=== PATIENT | female | born 1965 | race Caucasian/White ===

== ENCOUNTER → 2021-09-16 08:25 | Outpatient (CLI) | payer OTHER, SELFPAY | PROVIDERS: Visit Provider Nurse Practitioner Critical Care Medicine | DX: R30.0 Dysuria (principal) | CPT/HCPCS: 87086 ==

== ENCOUNTER 2021-09-16 08:54 | Emergency (ER) | payer OTHER, SELFPAY ==
[2021-09-16 09:10] VITALS: BP 123/73; PULSE 80; RESP 18; TEMP 36.3; O2SAT 95; BMI 28.3
[2021-09-16 09:41] LABS: Add Manual Diff / Slide Review NO; Basophils Absolute Auto 0 /uL (0-100); Basophils Percent Auto 0.7 % (0-2); Eosinophils Absolute Auto 0 /uL (0-450); Eosinophils Percent Auto 0.6 % (2-4); Hemoglobin 13.7 g/dL (12.0-16.0); INR 1.1 (0.9-1.3); Lymphocytes Absolute Auto 1300 /uL (1100-4500); Lymphocytes Percent Auto 19.2 % (25-40); Mean Corpuscular HGB Conc 34.2 % (30-36); Mean Corpuscular Hemoglobin 30.1 PG (26-34); Mean Corpuscular Volume 88.2 fL (80-100); Monocytes Absolute Auto 300 /uL (0-900); Monocytes Percent Auto 4.7 % (3-14); Neutrophils Absolute Auto 5200 /uL (1500-7000); Neutrophils Percent Auto 74.8 % (50-75); Platelet Count 218 X10^3/uL (150-400); Prothrombin Time 12.1 SECONDS (10.1-12.7); Red Blood Cell Count 4.54 X10^6/uL (4.0-5.2); Red Cell Distribution Width 13.1 % (11.6-14.8); White Blood Cell Count 6.9 X10^3/uL (4.5-11.0)
[2021-09-16 09:44] LABS: PTT Partial Thromboplastin Tim 29 SECONDS (26.4-36.2)
[2021-09-16 09:47] LABS: Alanine Aminotransferase 20 IU/L (<35); Albumin 4.3 g/dL (3.5-5.0); Albumin Globulin Ratio 1.3 (1.0-2.8); Alkaline Phosphatase 72 U/L (38-126); Aspartate Aminotransferase 25 IU/L (14-36); Bilirubin Total 0.9 mg/dL (0.2-1.3); Blood Urea Nitrogen 14 mg/dL (7-17); Calcium 9.2 mg/dL (8.4-10.2); Carbon Dioxide 24 mmol/L (22-32); Chloride 109 mmol/L (98-107); Estimated Glomerular Filt Rate > 60.0 mL/min (>60); Globulin 3.2 g/dL (1.7-4.1); Glucose 124 mg/dL (70-100); HEMOLYSIS < 15 (0-50); Lipase 91 U/L (23-300); Potassium 3.9 mmol/L (3.4-5.1); Sodium 137 mmol/L (137-145); Total Protein 7.5 g/dL (6.3-8.2)
--- NOTE | 2021-09-16 09:55 | ED.ABDPAIN ---
HPI - Abdominal Pain General Chief Complaint: Abdominal Pain Stated Complaint: Stomach pain Time Seen by Provider: 09/16/21 09:54 Source: patient Mode of arrival: Ambulatory Limitations: no limitations History of Present Illness HPI narrative: The patient presents with left upper quadrant abdominal pain, diarrhea for 3 days, and rectal pressure. She has no nausea vomiting. She had a positive Cologuard 3 days ago. She had a colonoscopy many years ago, no recent GI studies. With the rectal pressure, there is a rectal bulge, perhaps a hemorrhoid. With the abdominal cramping, she has no proven history of diverticulitis. No chronic GI issues. She has no URI symptoms, cough, or respiratory symptoms. She has no fever chills. She has no back pain, no dysuria or hematuria Related Data Home Medications Medication Instructions Recorded Confirmed escitalopram oxalate 5 mg tablet 5 mg PO DAILY 09/16/21 09/16/21 Previous Rx's Medication Instructions Recorded amoxicillin 875 mg-potassium 1 tab PO BID #14 tab 09/16/21 clavulanate 125 mg tablet Allergies Allergy/AdvReac Type Severity Reaction Status Date / Time erythromycin base Allergy Intermediate Rash Verified 09/16/21 09:33 morphine Allergy Mild Rash Verified 09/16/21 09:33 Review of Systems Constitutional Constitutional: Denies anorexia, Denies chills, Denies fever(s) and Denies headache(s) Eyes Eyes: Denies change in vision ENT Ears, Nose, Mouth, and Throat: Denies dizziness, Denies headache(s), Denies sinus pressure and Denies sore throat Cardiovascular Cardiovascular: Denies chest pain, Denies syncope and Denies rapid heart rate Respiratory Respiratory: Denies chest congestion and Denies cough Gastrointestinal Gastrointestinal: Reports as per HPI Genitourinary Genitourinary: Denies dysuria, Denies dysuria and Reports flank pain Musculoskeletal Musculoskeletal: Denies back pain Integumentary/Breasts Skin/Breast: Denies lesions and Denies rash Neurologic Neurologic: Denies confusion, Denies dizziness, Denies syncope and Denies headache(s) Psychiatric Psychiatric: Denies confusion Hematologic/Lymphatic On Anticoagulants: No Allergic/Immunologic Allergic/Immunologic: Denies GI upset with certain foods Patient History Social History Smoking Status: Never smoker Smoking Status: Never smoker alcohol intake frequency: 0-2 drinks per day Substance Use Type: does not use Exam Initial Vital Signs Initial Vital Signs: Vital Signs Temperature 97.4 F L 09/16/21 09:10 Pulse Rate 80 09/16/21 09:10 Respiratory Rate 18 09/16/21 09:10 Blood Pressure 123/73 09/16/21 09:10 Pulse Oximetry 95 09/16/21 09:10 Const General: cooperative, healthy appearing, comfortable, well developed, well groomed and anxious [facility] Head: normocephalic Face and sinus: sinuses nontender Throat: posterior oropharynx normal Eyes General: appearance normal, both eyes and all related structures and dysmorphic (No icterus) Neck Neck: No JVD Chest Chest: normal inspection of the chest Resp Auscultation: clear to auscultation bilaterally Cardio Rate: regular rate Rhythm: regular rhythm Heart Sounds: S1 normal, S2 normal, no click and no murmurs GI Inspection: non-distended Palpation: tender (LUQ. LLQ.) Percussion: normal to percussion Auscultation: normal bowel sounds and other (No guarding or rebound.) Rectal Exam: visual inspection normal, normal sphincter tone and hemorrhoids (Multiple internal) Back/Spine/Pelvis Back: No CVA tenderness Skin General: no rashes or lesions noted Neuro General: patient alert, patient awake, patient oriented x3 and no focal motor deficits Extrem General: normal to inspection, full ROM, no pedal edema and no calf tenderness Psych Appearance: grossly normal Course Course Course Narrative: CT suggest proctitis versus diverticulitis. On rectal exam, she also has multiple internal hemorrhoids. She has multiple potential explanations of the positive Hemoccult testing. I will discharge her on Augmentin. She is advised to continue with process of obtaining colonoscopy. She return here if she has increasing pain or develops fever Orders Ordered: ED Orders 09/16/21 09:25 Complete Blood Count AUTO DIFF Stat Comprehensive Metabolic Panel Stat Lipase Stat Partial Thromboplastin Time Stat Prothrombin Time INR Stat 09/16/21 09:56 CT abdomen pelvis w con Stat Sodium Chloride (Normal Saline 0.9%) 1,000 mls @ 250 mls/hr IV CONT MARILIN Last Admin: 09/16/21 11:07 Dose: 250 mls/hr Documented by: SALLY Vital Signs Vital signs: Vital Signs - 8 hr 09/16/21 09:10 09/16/21 11:31 Temperature 97.4 F L Pulse Rate 80 69 Respiratory Rate 18 14 Blood Pressure 123/73 113/59 L Pulse Oximetry 95 97 MDM - Abdominal Pain Lab Data Result diagrams: 09/16/21 09:25 09/16/21 09:25 Labs: Lab Results 09/16/21 09/16/21 09/16/21 Range/Units 09:25 09:25 09:25 WBC 6.9 (4.5-11.0) X10^3/uL RBC 4.54 (4.0-5.2) X10^6/uL Hgb 13.7 (12.0-16.0) g/dL Hct 40.0 (36-46) % MCV 88.2 (80-100) fL MCH 30.1 (26-34) PG MCHC 34.2 (30-36) % RDW 13.1 (11.6-14.8) % Plt Count 218 (150-400) X10^3/uL Neut % (Auto) 74.8 (50-75) % Lymph % (Auto) 19.2 L (25-40) % [place] % (Auto) 4.7 (3-14) % Eos % (Auto) 0.6 L (2-4) % Baso % (Auto) 0.7 (0-2) % Neut # (Auto) 5200 (7183-9774) /uL Lymph # (Auto) 1300 (4962-7809) /uL [place] # (Auto) 300 (0-900) /uL Eos # (Auto) 0 (0-450) /uL Baso # (Auto) 0 (0-100) /uL PT 12.1 (10.1-12.7) SECONDS INR 1.1 (0.9-1.3) APTT 29 (26.4-36.2) SECONDS Sodium 137 (137-145) mmol/L Potassium 3.9 (3.4-5.1) mmol/L Chloride 109 H (98-107) mmol/L Carbon Dioxide 24 (22-32) mmol/L BUN 14 (7-17) mg/dL Creatinine 0.61 (0.52-1.04) mg/dL Estimated GFR > 60.0 (>60) mL/min BUN/Creatinine Ratio 23.0 H (6-22) Glucose 124 H (70-100) mg/dL Calcium 9.2 (8.4-10.2) mg/dL Total Bilirubin 0.9 (0.2-1.3) mg/dL AST 25 (14-36) IU/L ALT 20 (<35) IU/L Alkaline Phosphatase 72 (38-126) U/L Total Protein 7.5 (6.3-8.2) g/dL Albumin 4.3 (3.5-5.0) g/dL Globulin 3.2 (1.7-4.1) g/dL Albumin/Globulin Ratio 1.3 (1.0-2.8) Lipase 91 (23-300) U/L Point of care testing: Urine Dip Bedside Urine Glucose Negative Bedside Urine Bilirubin - Negative Bedside Urine Ketone +/- 5 Urine Specific [place] 1.015 Bedside Urine Occult Blood - Negative Bedside Urine pH 6.0 Bedside Urine Protein - Negative Bedside Urine Urobilinogen - Negative Bedside Urine Nitrite - Negative Bedside Urine Leukocytes - Negative Esterase Imaging Data CT scan - abdomen/pelvis: Radiologist's Impression: [place] [address] CT Scan Report Signed Patient: Melida Calle MR#: [id number] : 1965 Acct:[id number] Age/Sex: 56 / F Date of Service: 09/16/21 Loc: ED Accession Number: [id number] ?? Procedure: CT abdomen pelvis w con Ordering Provider: Asad Castaneda MD PROCEDURE:? CT ABDOMEN PELVIS W CON ? INDICATIONS:? Left abdomen pain ? TECHNIQUE:? After the administration of IV contrast, axial sections were acquired from the lung bases to the pubic symphysis.? Coronal and sagittal reformats were performed.? For radiation dose reduction, the following was used:? automated exposure control, adjustment of mA and/or kV according to patient size.? 97 cc Isovue-300. ? COMPARISON:? None. ? FINDINGS:? Image quality:? Excellent.? ? Lung bases:? Unremarkable.? ? Heart:? No significant findings. ? ? ABDOMEN: Liver:? Hypodense focus in the right lobe of the liver, (08/18).? ? Gallbladder:? Unremarkable.? ? Biliary ducts:? Unremarkable.? ? Pancreas:? No peripancreatic fluid collection.? ? Spleen:? No splenomegaly. Adrenal Glands:? No nodule. Kidneys and Ureters:? No hydronephrosis.? ? ? Stomach and Bowel:? No small bowel obstruction.? Diverticulosis.? There is mild stranding and/or free fluid adjacent to the upper rectum/rectosigmoid junction.? The appendix is not dilated. Peritoneum:? No abnormal intraperitoneal fluid.? No free air.? ? Ventral Wall: ? No hernia.? Abdominal Nodes:? No retroperitoneal or mesenteric adenopathy by size criteria.? Vessels:? Aorta and inferior vena cava are normal in size.? ? PELVIS: Pelvic Organs:? Anteverted uterus.? ? Bladder:? No bladder stones.? Small phleboliths.? Pelvic Nodes: No enlarged lymph nodes.? Miscellaneous: No inguinal hernias are seen. ? ? ? Bones:? No compression fracture.? Small T12 bone island. ? ? IMPRESSION:? 1. Mild inflammatory change and/or fluid adjacent to the upper rectum.? This could be due to proctitis or diverticulitis. Consider follow-up colonoscopy if not recently performed. ? 2. Mild sigmoid colon diverticulosis. ? 3. Hypodense focus in the right lobe of the liver.? This most likely represents a hemangioma or cyst.? -Comparison with more remote CTs if available would be helpful.? If clinically indicated further characterization with ultrasound or MRI could be performed. ? ? Dictated by: Edinson Amin M.D. on 09/16/2021 at 9:37 ? ? Approved by: Edinson Amin M.D. on 09/16/2021 at 9:45?? Discharge Plan Departure Patient Disposition: Home Clinical Impression: Diverticulitis, Hemorrhoids Instructions: DI for Diverticulitis, DI for Hemorrhoids Activity Restrictions/Additional Instructions: Plan, high-fiber diet. Be sure you drink plenty of fluids. Augmentin 2 times daily for 7 days. Follow-up with your PCM about 10 days for recheck. Follow-up with the plan for colonoscopy Return here for increasing pain or fever. Prescriptions: New amoxicillin-pot clavulanate 875-125 mg tablet 1 tab PO BID Qty: 14 0RF No Action escitalopram oxalate 5 mg tablet 5 mg PO DAILY 0RF Referrals: Cheng Brink MD [Primary Care Provider] -
--- NOTE | 2021-09-16 09:56 | DI.CT.S_ITS ---
PROCEDURE: CT ABDOMEN PELVIS W CON INDICATIONS: Left abdomen pain TECHNIQUE: After the administration of IV contrast, axial sections were acquired from the lung bases to the pubic symphysis. Coronal and sagittal reformats were performed. For radiation dose reduction, the following was used: automated exposure control, adjustment of mA and/or kV according to patient size. 97 cc Isovue-300. COMPARISON: None. FINDINGS: Image quality: Excellent. Lung bases: Unremarkable. Heart: No significant findings. ABDOMEN: Liver: Hypodense focus in the right lobe of the liver, (2/). Gallbladder: Unremarkable. Biliary ducts: Unremarkable. Pancreas: No peripancreatic fluid collection. Spleen: No splenomegaly. Adrenal Glands: No nodule. Kidneys and Ureters: No hydronephrosis. Stomach and Bowel: No small bowel obstruction. Diverticulosis. There is mild stranding and/or free fluid adjacent to the upper rectum/rectosigmoid junction. The appendix is not dilated. Peritoneum: No abnormal intraperitoneal fluid. No free air. Ventral Wall: No hernia. Abdominal Nodes: No retroperitoneal or mesenteric adenopathy by size criteria. Vessels: Aorta and inferior vena cava are normal in size. PELVIS: Pelvic Organs: Anteverted uterus. Bladder: No bladder stones. Small phleboliths. Pelvic Nodes: No enlarged lymph nodes. Miscellaneous: No inguinal hernias are seen. Bones: No compression fracture. Small T12 bone island. IMPRESSION: 1. Mild inflammatory change and/or fluid adjacent to the upper rectum. This could be due to proctitis or diverticulitis. Consider follow-up colonoscopy if not recently performed. 2. Mild sigmoid colon diverticulosis. 3. Hypodense focus in the right lobe of the liver. This most likely represents a hemangioma or cyst. -Comparison with more remote CTs if available would be helpful. If clinically indicated further characterization with ultrasound or MRI could be performed. Dictated by: Edinson Amin M.D. on 09/16/2021 at 9:37 Approved by: Edinson Amin M.D. on 09/16/2021 at 9:45
[2021-09-16] MEDS: SODIUM CHLORIDE 0.9% 1,000 ML 250 ML IV (11:07)
[2021-09-16 11:31] VITALS: BP 113/59; PULSE 69; RESP 14; O2SAT 97
[2021-09-16] MEDS: AMOXICILLIN/CLAV 875/125 MG 1 TAB PO (13:43)
[2021-09-16 14:09] VITALS: BP 112/64; PULSE 82; RESP 18; O2SAT 97
== END 2021-09-16 14:11 | disposition home or self-care (01) ==
PROVIDERS: Emergency Provider Emergency Medicine; PCP Internal Medicine
DX: K57.32 Diverticulitis of large intestine without perforation or abscess without bleeding (principal); K64.8 Other hemorrhoids; Z88.1 Allergy status to other antibiotic agents; R30.0 Dysuria
CPT/HCPCS: 36415; 74177; 80053; 81003; 83690; 85025; 85610; 85730; 87086; 96360; 96361; 99284; Q9967